=== PATIENT | male | born 1965 | race Caucasian/White ===

== ENCOUNTER 2023-12-04 06:27 | Emergency (ER) | payer OTHER, SELFPAY ==
[2023-12-04 06:30] VITALS: BP 144/86
--- NOTE | 2023-12-04 07:09 | ED.GENMED ---
History of Present Illness
General
Chief Complaint: Skin Problem
Source: patient
Exam Limitations: none
Time Seen by Provider: 12/04/23 06:53
Nursing documentation reviewed up to this point in time: agreed with
Travel History
Have you had any contact with someone who has COVID-19?: No
Do you have any symptoms of coronavirus? Fever > 100 degrees, chills, cough, shortness of breath, sore throat, loss of taste or smell, muscle aches, or headache?: No
History of Present Illness
History of Present Illness:
Patient presents to ED secondary to fall at home, while walking down the steps, inside his house. Patient states that he lost balance and fell backwards, landing on his left elbow and his left mid back. Denies head injury. Denies neck pain.
Denies loss of sensation or weakness. Denies urinary or bowel incontinence. Denies chest pain. Patient reports mild pain in his back with any movement or with deep inspiration. Patient does not take any blood thinning medications.
Review of Systems
Review of Systems
Allergies reviewed?: Yes
All Other Systems: ROS reviewed and negative except as documented in HPI and ROS
Constitutional: Reports no symptoms
EENT: Reports no symptoms
Respiratory: Reports trouble breathing
Cardiac: Reports no symptoms; Denies chest pain
ABD/GI: Reports no symptoms; Denies abdominal pain, nausea or vomiting
: Reports no symptoms; Denies incontinence
Musculoskeletal: Reports back pain; Denies neck pain
Skin: Reports no symptoms
Neurological: Reports no symptoms; Denies dizzy, headache or weakness
Phy Exam
Physical Exam
Physical Exam:
Physical Exam
General: no apparent distress, not acutely ill. afebrile
Head: nc/at. eomi
Neck: supple. no meningeal signs.
Heart: s1/s2 regular rate and rhythm, no murmur. equal radial pulses.
Lungs: no acute respiratory distress. clear bilaterally
Abdomen: normal bowel sounds. not tender.
Back: erythema/tenderness noted over left midback, without swelling/deformity. no midline tenderness.
Neuro: alert and oriented. no focal neurological deficits
Skin: no rash
Psychiatric: well kept. interactive and cooperative
Extremities: mild tenderness/swelling noted proximal to olecranon, along medial aspect. normal range of motion.
Course
Orders/Labs/Results
Orders:
Orders
12/04/23 07:01
CR Elbow - Left Min 3 Views Urgent
Comment:
Reason For Exam: pain w swelling
CR Ribs-right 3 Vw W/pa Chest* Urgent
Comment:
Reason For Exam: right mid back pain after fall
Vital Signs
Initial and Last Documented VS:
Initial Vital Signs
Temp Pulse Resp BP Pulse Ox
97.8 F 64 18 144/86 99
12/04/23 06:30 12/04/23 06:30 12/04/23 06:30 12/04/23 06:30 12/04/23 06:30
Last Documented Vital Signs
Temp Pulse Resp BP Pulse Ox
97.8 F 62 13 111/82 99
12/04/23 06:30 12/04/23 08:32 12/04/23 08:32 12/04/23 08:32 12/04/23 08:32
MDM/Problems Addressed
MDM/Problems Addressed:
X-ray: No acute findings. History and exam consistent with likely minor contusion. Patient will be discharged home in stable condition, with recommendation to follow-up with PCP with any further concerns.
*Critical Care Note
Total Time (30-74mins, 75-104mins- exclusive of procedures): Not Applicable
ED Attending Note
-
Portions of this chart may have been created with voice recognition software.� Occasional wrong word or��sound alike� substitutions may have occurred due to the inherent limitations of voice recognition software.
Discharge Plan
Departure
Patient Disposition: Home (Routine Discharge)
Date of Disposition: 12/04/23
Time of Disposition: 08:29
Patient with high blood pressure during this ER visit?: Yes
Condition: Good
Discharge Problem:
Contusion
Instructions: Contusion (DC)
Referrals:
Clarisse Donald PA-C [Family Provider] -
Activity Restrictions/Additional Instructions:
As discussed, please follow-up with your primary care physician with any further concerns.
Interventions
Interventions:
*Risk Screen - Suicide Last Done: 12/04/23 06:30
*General Assessment Last Done: 12/04/23 07:53
*Neglect/Abuse Screening Last Done: 12/04/23 06:30
ED- Fall Risk Assessment Last Done: 12/04/23 08:32
*ED COVID-19 Vaccine History Last Done: 12/04/23 07:53
*Nursing Disposition Last Done: 12/04/23 08:32
ED-Musculoskeletal Assessment Last Done: 12/04/23 07:53
ED- Neurological Assessment Last Done: 12/04/23 07:53
ED-Skin Assessment Last Done: 12/04/23 07:53
Discharge Date and Time
Discharge Date/Time: 12/04/23 08:33
[2023-12-04 08:32] VITALS: BP 111/82
== END 2023-12-04 08:33 | disposition home or self-care (01) ==
LOC: EMR 06:27
PROVIDERS: EMERGENCY PHYSICIAN Emergency Medicine; FAMILY PHYSICIAN Student in an Organized Health Care Education/Training Program
DX: M25.522 Pain in left elbow (principal); W01.0XXA Fall on same level from slipping, tripping and stumbling without subsequent striking against object, initial encounter
CPT/HCPCS: 99283; 71101; 73080

== ENCOUNTER 2024-06-13 18:49 | Emergency (ER) | payer OTHER, SELFPAY ==
[2024-06-13 18:52] VITALS: BP 140/90
[2024-06-13] MEDS: TORADOL 15 MG IV (21:05)
--- NOTE | 2024-06-13 21:05 | ED.GENMED ---
History of Present Illness
General
Chief Complaint: Fever
Source: patient
Exam Limitations: none
Time Seen by Provider: 06/13/24 20:27
Nursing documentation reviewed up to this point in time: agreed with
History of Present Illness
History of Present Illness:
58-year-old male presents to the ER for evaluation. Patient was recently in [place] and got back yesterday. Patient started not feeling well 4 days ago. He then started with cough he reports productive yellow sputum. He did fly home yesterday
from [place] and saw his family doctor. Did have 101.5 while at the office. He was negative for COVID and flu because of cough given doxycycline. Patient complains of continued cough decreased appetite but he is drinking fluids. He does have a
headache and was concerned about meningitis. He denies any photophobia. He reports neck feels mildly sore when he extends his neck. He is afebrile here (and did not take anything for fever recently).
Review of Systems
Review of Systems
Allergies reviewed?: Yes
All Other Systems: ROS reviewed and negative except as documented in HPI and ROS
Constitutional: Reports fever; Denies fatigue or chills
EENT: Reports no symptoms
Respiratory: Reports cough; Denies trouble breathing
Cardiac: Reports no symptoms
ABD/GI: Reports no symptoms; Denies nausea or vomiting
Musculoskeletal: Reports neck pain (neck is sore)
Skin: Reports no symptoms
Neurological: Reports headache; Denies dizzy, weakness or numbness
Endocrine: Reports no symptoms
Hematologic/Lymphatic: Reports no symptoms
Psychiatric: Reports no symptoms
Phy Exam
General Physical Exam
General Presentation: no apparent distress
General age: appears stated age
General Skin: warm and dry
General Habitus: normal
General Mental: alert
General Hydration: appears well hydrated
ENT Exam
ENT Exam: EOMI, TM's normal and neck supple
Eye Exam
Eye Exam: PERRL and EOMI
Eye Exam General: PERRL: bilateral and EOM intact: bilateral
Pupil Exam: Bilateral: round and reactive
Cardiovascular Exam
Cardiovascular Exam: regular rate/rhythm, no murmur and normal peripheral pulses
Pulmonary Exam
Pulmonary Exam: lungs clear and no respiratory distress
Neurological Exam
Neurological Exam: alert and oriented x3
Musculoskeletal Exam
Musculoskeletal Exam: full ROM
Skin Exam
Skin Exam: normal color and warm/dry
Psychiatric Exam
Psychiatric Exam: normal mood/affect
Course
Orders/Labs/Results
Orders:
Orders
06/13/24 21:01
Complete Blood Count/With Diff Urgent
Comprehensive Metabolic Panel Urgent
Chest [CR Chest - 2 Views ] Urgent
Comment:
Reason For Exam: cough/fever
06/13/24 21:03
IV Insert/Care/Rem.- Treatment PRN
0.9% Sodium Chloride 1000 ml [Nss] 1,000 ml IV BOLUS
Ketorolac [Toradol] 15 mg IV NOW STA
Abnormal Lab Results
06/13/24
21:01
RBC 4.38 L 10^6/uL
(4.70-6.10)
Hgb 12.9 L g/dL
(13.0-18.0)
Hct 36.8 L %
(39.0-52.0)
Absolute Monos (auto) 0.9 H 10^3/uL
(0.1-0.6)
Monocytes % 13.9 H %
(1.7-9.3)
AST 72 H U/L
(17-59)
ALT 61 H U/L
(0-50)
06/13/24 21:01
06/13/24 21:01
Vital Signs
Initial and Last Documented VS:
Initial Vital Signs
Temp Pulse Resp BP Pulse Ox
99.5 F 83 16 140/90 95
06/13/24 18:52 06/13/24 18:52 06/13/24 18:52 06/13/24 18:52 06/13/24 18:52
Last Documented Vital Signs
Temp Pulse Resp BP Pulse Ox
99.5 F 83 16 131/80 97
06/13/24 18:52 06/13/24 18:52 06/13/24 18:52 06/13/24 21:11 06/13/24 21:11
Data Warehousing Architect consulted with Physician
Name of Physician Consulted: Dr Horn
MDM/Problems Addressed
Differential Diagnosis Includes:
Not limited to viral syndrome, bronchitis, pneumonia less likely meningitis
MDM/Problems Addressed:
As documented patient is a 50-year-old male who was recently in [place] and felt sick while over there. He recently got home several days ago started with a cough. Since then he has had cough which is productive and is yellow in color and has had a
headache. He was at his primary care office yesterday found to be febrile and given doxycycline to treat for possible pneumonia. Patient does complain of persistent cough though he denies any shortness of breath. He does have a headache and
reports his neck felt a little stiff and he was concerned about meningitis. He denies any photophobia. He presents awake alert no acute distress afebrile here in the ER no meningismus on exam lungs are clear he does have an audible cough x-ray
does show new small bilateral midlung patchy opacity which could represent atelectasis and or pneumonia. Patient has a normal white count and is very nontoxic-appearing will have patient continue on doxycycline. He has been drinking water here
and received nss/toradol. feeling better. His electrolytes are normal LFTs are mildly elevated discussed with patient to have family doctor follow-up with this.
*Critical Care Note
Total Time (30-74mins, 75-104mins- exclusive of procedures): Not Applicable
ED Attending Note
-
Portions of this chart may have been created with voice recognition software.� Occasional wrong word or��sound alike� substitutions may have occurred due to the inherent limitations of voice recognition software.
Discharge Plan
Departure
Patient Disposition: Home (Routine Discharge)
Date of Disposition: 06/13/24
Time of Disposition: 22:35
Patient with high blood pressure during this ER visit?: Yes
Condition: Fair
Covid-19: Not Applicable
Discharge Problem:
Pneumonia
Instructions: Pneumonia, Adult (DC)
Referrals:
Lalo Pinon MD [Family Provider] -
Activity Restrictions/Additional Instructions:
As discussed continue on doxycycline. Follow-up with your family doctor the next several days for reevaluation. Return if any worsening of symptoms of increasing fevers worsening cough shortness of breath worsening headache neck pain or any
further concerns.
Also as discussed your liver functions are mildly elevated please have these rechecked by your family doctor.
Interventions
Interventions:
*Risk Screen - Suicide Last Done: 06/13/24 18:52
*General Assessment Last Done: 06/13/24 18:52
*Neglect/Abuse Screening Last Done: 06/13/24 18:52
*ED COVID-19 Vaccine History Last Done: 06/13/24 20:56
ED- Neurological Assessment Last Done: 06/13/24 20:53
ED-Skin Assessment Last Done: 06/13/24 20:53
Discharge Date and Time
Print Language: TAIWANESE
[2024-06-13] MEDS: NSS 1000 IV (21:06)
[2024-06-13 21:11] VITALS: BP 131/80
[2024-06-13 21:17] LABS: % Basophils 0.8 % (0-2); % Eosinophils 5.1 % (0-6); % Immature Granulocytes 0.3 % (0-0.5); % Lymphocytes 25.5 % (20.5-51.1); % Monocytes 13.9 % (1.7-9.3); % Neutrophils 54.4 % (42.2-75.2); Absolute Basophils 0.1 10^3/uL (0-0.2); Absolute Eosinophils 0.3 10^3/uL (0-0.7); Absolute Lymphocytes 1.6 10^3/uL (1.2-3.4); Absolute Monocytes 0.9 10^3/uL (0.1-0.6); Absolute Neutrophils 3.4 10^3/uL (1.4-6.5); Hematocrit 36.8 % (39.0-52.0); Hemoglobin 12.9 g/dL (13.0-18.0); Mean Corp Hgb Conc. 35.1 g/dL (33.0-37.0); Mean Corpuscular Hgb 29.5 pg (27.0-31.0); Mean Platelet Volume 9.8 fL (7.4-10.4); Nucleated Red Blood Cells % 0 % (-); Platelet Count 247 10^3/uL (130-400); Red Blood Cell Count 4.38 10^6/uL (4.70-6.10); Red Cell Dist. Width 12.8 % (11.5-14.5); White Blood Cell Count 6.3 10^3/uL (4.8-10.8)
[2024-06-13 21:39] LABS: ALT (SGPT) 61 U/L (0-50); AST (SGOT) 72 U/L (17-59); Alkaline Phosphatase 61 U/L (38-126); Blood Urea Nitrogen 15 mg/dl (9-20); Carbon Dioxide 27 mmol/L (22-30); Chloride 99 mmol/L (98-107); Glucose 90 mg/dl (70-99); Potassium 4.2 mmol/L (3.5-5.1); Sodium 135 mmol/L (135-145); Total Bilirubin 0.9 mg/dl (0.2-1.3); Total Protein 6.5 g/dl (6.3-8.2); eGFR > 60.00
[2024-06-13 22:54] VITALS: BP 129/73
== END 2024-06-13 22:55 | disposition home or self-care (01) ==
LOC: EMR 18:49
PROVIDERS: Nurse Practitioner; EMERGENCY PHYSICIAN Student in an Organized Health Care Education/Training Program; FAMILY PHYSICIAN Family Medicine
DX: J18.9 Pneumonia, unspecified organism (principal); R03.0 Elevated blood-pressure reading, without diagnosis of hypertension
CPT/HCPCS: 99284; 96374; 96361; 71046; 80053; 85025

== ENCOUNTER 2025-08-19 08:04 | Emergency (ER) | payer OTHER, SELFPAY ==
[2025-08-19 08:16] VITALS: BP 156/87
--- NOTE | 2025-08-19 09:24 | ED.GENMED ---
History of Present Illness
General
Chief Complaint: Anal/Rectal Problem
Source: patient
Exam Limitations: none
Time Seen by Provider: 08/19/25 09:13
History of Present Illness
History of Present Illness:
59-year-old male otherwise healthy presents complaining of a bleeding external hemorrhoid. He had been dealing with hemorrhoid for the past several days is getting more swollen and slightly painful. This morning it started to bleed his pain is
improved however he has not been able to get stop bleeding. He is not anticoagulated. He does not take any medications regularly. He does endorse a history of having an anal fissure that he follows with someone in [place] for. No other
complaints
Phy Exam
Physical Exam
Physical Exam:
General: Well-appearing male no acute distress
HEENT normal cephalic atraumatic
Rectal exam: I mild amount of blood surrounding the anus. There is a small hemorrhoid that looks like it was bleeding at 1 point but there is a clot established over the site of bleeding. It appears as though this may have been a thrombosed
hemorrhoid. No bleeding on my exam.
Course
Vital Signs
Initial and Last Documented VS:
Initial Vital Signs
Temp Pulse Resp BP Pulse Ox
97.6 F 67 20 156/87 99
08/19/25 08:16 08/19/25 08:16 08/19/25 08:16 08/19/25 08:16 08/19/25 08:16
Last Documented Vital Signs
Temp Pulse Resp BP Pulse Ox
97.6 F 57 16 110/83 97
08/19/25 08:16 08/19/25 10:00 08/19/25 10:00 08/19/25 10:00 08/19/25 10:00
MDM/Problems Addressed
Differential Diagnosis Includes:
Patient presented for continued bleeding from thrombosed hemorrhoid that drained on its own. On my exam there is no current bleeding. The area was cleaned with warm water. Vital signs are stable. Will observe for short period of time here to
ensure hemostasis
*Pulse Oximetry
SaO2: 99
Oxygen Mode of Delivery: Room air
Patient hypoxic: no
*Critical Care Note
Total Time (30-74mins, 75-104mins- exclusive of procedures): Not Applicable
Update Note
Update Note:
It has been an hour since I examined the patient. There is no further bleeding. He has been ambulatory upright on his feet. I suspect this was a self-limiting process from an external hemorrhoid that was thrombosed drained on its own and now has
stopped bleeding on its own. Recommend he follow-up with his colorectal specialist. Stable for discharge
ED Attending Note
-
Portions of this chart may have been created with voice recognition software.� Occasional wrong word or��sound alike� substitutions may have occurred due to the inherent limitations of voice recognition software.
Discharge Plan
Departure
Patient Disposition: Home (Routine Discharge)
Date of Disposition: 08/19/25
Time of Disposition: 10:12
Patient with high blood pressure during this ER visit?: No
Discharge Problem:
Hemorrhoid
Instructions: Hemorrhoids (DC)
Referrals:
Clarisse Donald PA-C [Family Provider, Family Practice]
Activity Restrictions/Additional Instructions:
Continue with increasing your fiber. Drink plenty of fluids. You may use sitz bath's. You may continue with topical treatments. Return if worse otherwise follow-up with your doctor
Interventions
Interventions:
*Risk Screen - Suicide Last Done: 08/19/25 08:16
*General Assessment Last Done: 08/19/25 09:27
*Neglect/Abuse Screening Last Done: 08/19/25 09:27
*ED COVID-19 Vaccine History Last Done: 08/19/25 09:27
*ED Influenza Vaccine History Last Done: 08/19/25 09:27
[facility] Risk Assessment Tool Last Done: 08/19/25 09:27
MG-Gjbhll-Tivojubmdl Assessment Last Done: 08/19/25 09:28
ED-Skin Assessment Last Done: 08/19/25 09:28
Discharge Date and Time
Print Language: [place] K[place]
[2025-08-19 09:27] VITALS: BMI 30.1
[2025-08-19 10:00] VITALS: BP 110/83
== END 2025-08-19 10:37 | disposition home or self-care (01) ==
LOC: EMR 08:04
PROVIDERS: EMERGENCY PHYSICIAN Emergency Medicine; FAMILY PHYSICIAN Student in an Organized Health Care Education/Training Program
DX: K64.4 Residual hemorrhoidal skin tags (principal)
CPT/HCPCS: 99282